=== PATIENT | female | born 1930 | race Caucasian/White ===

== ENCOUNTER 2018-04-09 09:46 | Emergency (ER) | payer OTHER ==
[~2018-04-09] VITALS: Ht 152.4 cm; Wt 59.4 kg
[2018-04-09 10:02] VITALS: BP 150/60
--- NOTE | 2018-04-09 10:04 | NUR ---
PT AMBULATE TO BED 12
--- NOTE | 2018-04-09 10:17 | NUR ---
PT C/O COUGH SINCE WEDNESDAY. 98% ON RA. DENIES CP, N/V/D OR SOB. HX---NONE
--- NOTE | 2018-04-09 11:25 | NUR ---
PT AND FAMILY NOTIFIED WILL BE SEEN BY DR BILLINGSLEY
[2018-04-09 11:51] VITALS: BP 150/60
--- NOTE | 2018-04-09 11:52 | NUR ---
Patient discharged with v/s stable. Written and verbal after care instructions given and explained. Patient alert, oriented and verbalized understanding of instructions. Ambulatory with steady gait. All questions addressed prior to discharge. ID band removed. Patient advised to follow up with PMD. Rx of AUGMENTIN/PROMETHAZINE given. Patient educated on indication of medication including possible reaction and side effects. Opportunity to ask questions provided and answered.
== END 2018-04-09 11:52 | disposition home or self-care (01) ==
LOC: MED 09:46
DX: J06.9 Acute upper respiratory infection, unspecified (principal); I10 Essential (primary) hypertension
CPT/HCPCS: 99283